=== PATIENT | male | born 1960 | race Caucasian/White ===

== ENCOUNTER 2016-08-24 10:11 | Observation (INO) | payer BC ==
[2016-08-24] MEDS ORDERED: NS 1,000 ML IV ONE ×2 (10:27→12:46)
[2016-08-24] MEDS ORDERED: fentaNYL 100 MCG/2 ML INJ IVP ONE (10:37)
[2016-08-24] MEDS ORDERED: ONDANSETRON 4 MG/2 ML VIAL IVP ONE (10:37)
--- NOTE | 2016-08-24 10:40 | EDPHY ---
H & P Stated Complaint: RUQ Pain w/ n/v this am x2. Source: Patient, Family Exam Limitations: No limitations - Personal History Tetanus Vaccine Date: 2011 - Medical/Surgical History Hx Asthma: No Hx Chronic Respiratory Disease: No Hx Diabetes: Yes Hx Cardiac Disease: No Hx Renal Disease: No Hx Cirrhosis: No Hx Alcoholism: No Hx HIV/AIDS: No Hx Splenectomy or Spleen Trauma: No Other PMH: l knee arthroscopes, back cysts removed, R partial oorchidectomy- blood clot, R inguinal hernia repair. - Social History Smoking Status: Never smoked HPI/ROS: CHIEF COMPLAINT: Right upper quadrant pain, vomiting HISTORY OF PRESENT ILLNESS: Patient complains of 5 day history of right upper quadrant abdominal pain. This is gradual onset. Constant duration. Symptoms are colicky and wax and wane from moderate to severe. Associated with nausea and several episodes of vomiting. This is bilious in appearance. No fever or chills. No chest pain or shortness of breath. No abdominal pain elsewhere. Has a history of cholelithiasis that was asymptomatic last year. No trauma or injury. No change in bowel movements. No other associated complaints or modifying factors. REVIEW OF SYSTEMS: Ten systems reviewed and are negative unless otherwise noted in the HPI PAST MEDICAL HISTORY: Type 2 diabetic, controlled with to oral medications. Previous oblique tear on a pain stimulator SOCIAL HISTORY: Nonsmoker FAMILY HISTORY: Noncontributory EXAMINATION General Appearance: Alert, no distress Head: normocephalic, atraumatic Eyes: Pupils equal and round, no conjunctival pallor or injection ENT, Mouth: Mucous membranes moist Neck: Normal inspection, supple, non-tender Respiratory: Lungs are clear to auscultation. No wheeze, rhonchi or crackles Cardiovascular: Regular rate and rhythm. No murmur. Pulses intact distally. Gastrointestinal: Obese Abdomen is soft. Bowel sounds present in all 4 quadrants. Tenderness right upper quadrant. No guarding. No tympany rigidity. No CVA tenderness. Nonacute abdomen. Back: non-tender, no bony abnormalities Neurological: A&O, nonfocal, normal gait Skin: Warm and dry, no rash Extremities: Nontender, no pedal edema Psychiatric: Mood and affect normal DIFFERENTIAL DIAGNOSES: Including but not limited to cholecystitis, cholelithiasis, choledocholithiasis , hepatitis, pancreatitis, colitis, renal colic MDM: 10:35 a.m. Right upper quadrant abdominal pain with nausea vomiting. Patient has a known history of cholelithiasis. Vital signs are stable. Abdominal exam is consistent with gallbladder etiology. Laboratory studies and ultrasound have been ordered. 11:11 a.m. CBC is unremarkable. Chemistry and ultrasound are pending at this time. I have re-evaluated the patient. His pain is improving. 12:30 p.m. Notified by radiologist Dr. Kennedy. Ultrasound of the gallbladder does reveal stones but no evidence of cholecystitis. Incidental note of likely hemangioma in the liver 12:45 p.m. I have re-evaluated the patient. He remains significantly uncomfortable. His abdomen remains benign but his pain is refractory to multiple bouts of IV pain medication. Thus I will order CT scan of the abdomen pelvis, further pain medication and Toradol. 3:25 p.m. There was delay in obtaining the CT scan as the patient has a mild allergy to IV contrast. This required pretreatment with Benadryl and Solu-Medrol with a brief period of observation pre and postprocedure. This was done without complication. No evidence of anaphylaxis reaction. At this time I have discussed the case with the radiologist Dr. Kennedy. CT scan reveals no acute findings other than stones in the gallbladder and hepatic hemangiomas. No other acute findings. Due to the significance of his pain and refractory to IV pain medications I will consult General surgery 3:35 p.m. I discussed the case with Dr. Roman. He is currently in the operating room but will consult on the patient after the current case. Patient still complains of moderate to severe pain. 5:00 p.m. I discussed the case with Dr. Roman directly here to emergency department. He will evaluate the patient at this time 5:[address] Roman has evaluated the patient. He is requesting admission to his service. He is also requesting normal saline at 100 mL/hour and 1 g of IV Invanz. He is planning for surgical intervention. Patient is admitted to his service in stable condition. SUPERVISION: Patient was evaluated in conjunction with the supervising physician. Please see their note for details. (Gordon Summers) Constitutional: Initial Vital Signs Temperature (C) 97.7 F 08/24/16 10:18 Heart Rate 67 08/24/16 10:18 Respiratory Rate 22 H 08/24/16 10:18 Blood Pressure 121/75 H 08/24/16 10:18 O2 Sat (%) 95 08/24/16 10:18 O2 Delivery Mode Nasal Cannula O2 (L/minute) 2 Allergies/Adverse Reactions: iodine Allergy (Verified 08/24/16 10:16) promethazine HCl [From Phenergan] Allergy (Verified 08/24/16 10:16) STRAWBERRIES Allergy (Severe, Uncoded 11/27/11 19:08) Anaphylaxis CONTRAST DYE Allergy (Mild, Uncoded 11/28/11 01:16) Home Medications: Medication Instructions Recorded Invokana 10/23/15 Medical Decision Making - Diagnostics Imaging Results: Imaging Impressions Abdomen Ultrasound 08/24/16 10:36 Impression: 1. Cholelithiasis. The patient was tender over the gallbladder fossa although there are no additional secondary findings for cholecystitis. 2. Atypical hemangioma suspected right lobe liver laterally. Additional presumed hemangiomas seen on prior CT study are not well delineated with ultrasound. 3. Mild hepatic steatosis suspected. Findings discussed with [facility] PAC at 12:38 hour, 08/24/2016. Abdomen CT 08/24/16 13:38 Impression: 1. Stable presumed hemangiomas within the liver. 2. No CT evidence of appendicitis, abscess or bowel obstruction. 3. Small gallstones in the gallbladder. 4. Mild splenomegaly stable in appearance. Findings discussed with [facility] PAC at 15:24 hour, 08/24/2016. ED Course/Re-evaluation: The patient was evaluated and managed by the physician's education assistant. My cosignature indicates that I reviewed the chart and I agree with the findings and plan of care as documented. I am the secondary supervising physician. ( Carmen Mario) - Data Points Laboratory Results: Laboratory Results 08/24/16 10:30 08/24/16 10:30 08/24/16 08/24/16 08/24/16 12:30 10:30 10:30 WBC RBC Hgb Hct MCV MCH MCHC RDW Plt Count MPV Neut % (Auto) Lymph % (Auto) Dade % (Auto) Eos % (Auto) Baso % (Auto) Nucleat RBC Rel Count Absolute Neuts (auto) Absolute Lymphs (auto) Absolute Monos (auto) Absolute Eos (auto) Absolute Basos (auto) Absolute Nucleated RBC Immature Gran % Immature Gran # PT 12.3 SEC SEC (12.0-15.0) INR 0.92 (0.83-1.16) APTT 24.6 SEC SEC (23.0-38.0) Sodium 136 mEq/L mEq/L (134-144) Potassium 4.1 mEq/L mEq/L (3.5-5.2) Chloride 105 mEq/L mEq/L (97-110) Carbon Dioxide 19 mEq/l L mEq/l (22-31) Anion Gap 12 mEq/L mEq/L (8-16) BUN 15 mg/dL mg/dL (7-23) Creatinine 0.7 mg/dL mg/dL (0.7-1.3) Estimated GFR > 60 Glucose 306 mg/dL H mg/dL (70-100) Calcium 9.2 mg/dL mg/dL (8.5-10.4) Total Bilirubin 1.0 mg/dL mg/dL (0.1-1.4) Conjugated Bilirubin 0.3 mg/dL mg/dL (0.0-0.5) Unconjugated Bilirubin 0.7 mg/dL mg/dL (0.0-1.1) AST 29 IU/L IU/L (17-59) ALT 42 IU/L IU/L (21-72) Alkaline Phosphatase 115 IU/L IU/L (38-126) Total Protein 7.0 g/dL g/dL (6.3-8.2) Albumin 4.2 g/dL g/dL (3.5-5.0) Lipase 267.0 IU/L IU/L (23-300) Urine Color YELLOW Urine Appearance CLEAR Urine pH 5.0 (5.0-7.5) Ur Specific [place] 1.032 H (1.002-1.030) Urine Protein NEGATIVE (NEGATIVE) Urine Ketones 1+ H (NEGATIVE) Urine Blood 1+ H (NEGATIVE) Urine Nitrate NEGATIVE (NEGATIVE) Urine Bilirubin NEGATIVE (NEGATIVE) Urine Urobilinogen NEGATIVE EU EU (0.2-1.0) Ur Leukocyte Esterase NEGATIVE (NEGATIVE) Urine RBC 1-3 /hpf /hpf (0-3) Urine WBC 1-3 /hpf /hpf (0-3) Ur Epithelial Cells NONE SEEN /lpf /lpf (NONE-1+) Urine Glucose 3+ H (NEGATIVE) 08/24/16 10:30 WBC 6.94 10^3/uL 10^3/uL (3.80-9.50) RBC 5.51 10^6/uL 10^6/uL (4.40-6.38) Hgb 14.9 g/dL g/dL (13.7-17.5) Hct 44.3 % % (40.0-51.0) MCV 80.4 fL L fL (81.5-99.8) MCH 27.0 pg L pg (27.9-34.1) MCHC 33.6 g/dL g/dL (32.4-36.7) RDW 13.9 % % (11.5-15.2) Plt Count 164 10^3/uL 10^3/uL (150-400) MPV 10.2 fL fL (8.7-11.7) Neut % (Auto) 76.3 % H % (39.3-74.2) Lymph % (Auto) 14.6 % L % (15.0-45.0) Dade % (Auto) 7.2 % % (4.5-13.0) Eos % (Auto) 1.0 % % (0.6-7.6) Baso % (Auto) 0.6 % % (0.3-1.7) Nucleat RBC Rel Count 0.0 % % (0.0-0.2) Absolute Neuts (auto) 5.30 10^3/uL 10^3/uL (1.70-6.50) Absolute Lymphs (auto) 1.01 10^3/uL 10^3/uL (1.00-3.00) Absolute Monos (auto) 0.50 10^3/uL 10^3/uL (0.30-0.80) Absolute Eos (auto) 0.07 10^3/uL 10^3/uL (0.03-0.40) Absolute Basos (auto) 0.04 10^3/uL 10^3/uL (0.02-0.10) Absolute Nucleated RBC 0.00 10^3/uL 10^3/uL (0-0.01) Immature Gran % 0.3 % % (0.0-1.1) Immature Gran # 0.02 10^3/uL 10^3/uL (0.00-0.10) PT INR APTT Sodium Potassium Chloride Carbon Dioxide Anion Gap BUN Creatinine Estimated GFR Glucose Calcium Total Bilirubin Conjugated Bilirubin Unconjugated Bilirubin AST ALT Alkaline Phosphatase Total Protein Albumin Lipase Urine Color Urine Appearance Urine pH Ur Specific [place] Urine Protein Urine Ketones Urine Blood Urine Nitrate Urine Bilirubin Urine Urobilinogen Ur Leukocyte Esterase Urine RBC Urine WBC Ur Epithelial Cells Urine Glucose Medications Given: Discontinued Medications Diphenhydramine HCl (Benadryl Injection) 50 mg IVP EDNOW ONE Stop: 08/24/16 13:49 Last Admin: 08/24/16 13:56 Dose: 50 mg Fentanyl (Sublimaze) 150 mcg IVP EDNOW ONE Stop: 08/24/16 10:38 Last Admin: 08/24/16 10:45 Dose: 150 mcg Hydromorphone HCl (Dilaudid) 1 mg IVP EDNOW ONE Stop: 08/24/16 11:33 Last Admin: 08/24/16 11:32 Dose: 1 mg Hydromorphone HCl (Dilaudid) 1 mg IVP EDNOW ONE Stop: 08/24/16 12:47 Last Admin: 08/24/16 13:05 Dose: 1 mg Hydromorphone HCl (Dilaudid) 1 mg IVP EDNOW ONE Stop: 08/24/16 15:03 Last Admin: 08/24/16 15:03 Dose: 1 mg Sodium Chloride (Ns) 1,000 mls @ 0 mls/hr IV EDNOW ONE; Wide Open PRN Reason: Protocol Stop: 08/24/16 10:28 Last Admin: 08/24/16 10:45 Dose: 1,000 mls Sodium Chloride (Ns) 1,000 mls @ 0 mls/hr IV ONCE ONE; Wide Open PRN Reason: Protocol Stop: 08/24/16 12:47 Last Admin: 08/24/16 13:06 Dose: 1,000 mls Ketorolac Tromethamine (Toradol) 30 mg IVP EDNOW ONE Stop: 08/24/16 12:47 Last Admin: 08/24/16 13:06 Dose: 30 mg Methylprednisolone Sodium Succinate (Solu-Medrol) 125 mg IVP EDNOW ONE Stop: 08/24/16 13:49 Last Admin: 08/24/16 13:56 Dose: 125 mg Ondansetron HCl (Zofran) 4 mg IVP EDNOW ONE Stop: 08/24/16 10:38 Last Admin: 08/24/16 10:46 Dose: 4 mg Departure - Departure Disposition: [facility] Inpatient Acute Clinical Impression: Biliary colic Diabetes mellitus Qualifiers: Diabetes mellitus type: type 2 Diabetes mellitus complication status: with hyperglycemia Diabetes mellitus half-way insulin use: without half-way use Qualified Code(s): E11.65 - Type 2 diabetes mellitus with hyperglycemia Condition: Good Referrals: Julia Freeman MD [Primary Care Provider] - As per Instructions
[2016-08-24 10:42] LABS: % IMMATURE GRANULYOCYTES 0.3 % (0.0-1.1); ABSOLUTE IMMATURE GRANULOCYTES 0.02 10^3/uL (0.00-0.10); ADD DIFF? NO; ADD MORPH? NO; ADD SCAN? NO; ATYPICAL LYMPHOCYTE FLAG 0 (0-99); FRAGMENT RBC FLAG 0 (0-99); HEMATOCRIT 44.3 % (40.0-51.0); HEMOGLOBIN 14.9 g/dL (13.7-17.5); LEFT SHIFT FLG 0 (0-99); LIPEMIA HEMOLYSIS FLAG 80 (0-99); MEAN CELL HEMOGLOBIN CONCENTR. 33.6 g/dL (32.4-36.7); MEAN CELL VOLUME 80.4 fL (81.5-99.8); MEAN PLATELET VOLUME 10.2 fL (8.7-11.7); PLATELET CLUMPS FLAG 0 (0-99); PLATELET COUNT 164 10^3/uL (150-400); RED BLOOD CELL COUNT 5.51 10^6/uL (4.40-6.38); RED CELL DISTRIBUTION WIDTH 13.9 % (11.5-15.2)
[2016-08-24 11:10] LABS: ALANINE AMINOTRANSFERASE 42 IU/L (21-72); ALBUMIN 4.2 g/dL (3.5-5.0); ALKALINE PHOSPHATASE 115 IU/L (38-126); ANION GAP 12 mEq/L (8-16); ASPARTATE AMINOTRANSFERASE 29 IU/L (17-59); BILIRUBIN-CONJUGATED 0.3 mg/dL (0.0-0.5); BILIRUBIN-UNCONJUGATED 0.7 mg/dL (0.0-1.1); CALCIUM 9.2 mg/dL (8.5-10.4); CARBON DIOXIDE 19 mEq/l (22-31); CHLORIDE 105 mEq/L (97-110); CREATININE 0.7 mg/dL (0.7-1.3); GLOMERULAR FILTRATION RATE > 60; GLUCOSE 306 mg/dL (70-100); POTASSIUM 4.1 mEq/L (3.5-5.2); SODIUM 136 mEq/L (134-144)
[2016-08-24 11:12] LABS: INR 0.92 (0.83-1.16); PROTIME(PATIENT) 12.3 SEC (12.0-15.0)
[2016-08-24 11:13] LABS: APTT 24.6 SEC (23.0-38.0)
[2016-08-24] MEDS ORDERED: HYDROmorphONE/DILAUDID 1 MG/ML SYR ONE ×2 (11:29→14:59)
[2016-08-24] MEDS ORDERED: HYDROmorphONE/DILAUDID 1 MG/ML SYR IVP ONE ×4 (11:32→17:41)
[2016-08-24 12:37] LABS: COLOR YELLOW; LEUKOCYTE ESTERASE,URINE NEGATIVE (NEGATIVE); NITRITE,URINE NEGATIVE (NEGATIVE)
[2016-08-24] MEDS ORDERED: KETOROLAC 30 MG/1 ML SDV IVP ONE (12:46)
[2016-08-24] MEDS ORDERED: IOPAMIDOL (ISOVUE-300) 100 ML BTL ONE (12:59)
[2016-08-24] MEDS ORDERED: methylPREDNISolone SOD SUCC 125 MG/2 ML VIAL IVP ONE (13:48)
[2016-08-24] MEDS ORDERED: ERTAPENEM 1 GM in NS 100 ML IV ONE (17:29)
[2016-08-24] MEDS ORDERED: NS 1,000 ML IV SCH (17:30)
[2016-08-24] MEDS ORDERED: PROPOFOL/EMULSION 500 MG/50 ML BOTTLE IV ONE (17:55)
[2016-08-24] MEDS ORDERED: ROCURONIUM 50 MG/5 ML VIAL ONE ×2 (17:57)
[2016-08-24] MEDS ORDERED: ONDANSETRON 4 MG/2 ML VIAL ONE (17:57)
[2016-08-24] MEDS ORDERED: LIDOCAINE 2% 5 ML SDV ONE (17:57)
[2016-08-24] MEDS ORDERED: DEXAMETHASONE 4 MG/ML VIAL ONE (17:57)
[2016-08-24] MEDS ORDERED: fentaNYL 100 MCG/2 ML INJ ONE ×2 (17:58→19:21)
[2016-08-24] MEDS ORDERED: LR 1,000 ML IV ONE (18:01)
[2016-08-24] MEDS ORDERED: MIDAZOLAM 2 MG/2 ML VIAL IVP ONE (18:11)
[2016-08-24] MEDS ORDERED: MIDAZOLAM 2 MG/2 ML VIAL ONE (18:13)
--- NOTE | 2016-08-24 18:13 | PDANEPAE ---
ANE Past Medical History - Cardiovascular History Hx Hypertension: No Hx Arrhythmias: No Hx Chest Pain: No Hx Coronary Artery / Peripheral Vascular Disease: No Hx CHF / Valvular Disease: No Hx Palpitations: No - Pulmonary History Hx COPD: No Hx Asthma/Reactive Airway Disease: No Hx Recent Upper Respiratory Infection: No Hx Oxygen in Use at Home: No Hx Sleep Apnea: No - Endocrine History Hx Diabetes: Yes Hypothyroid: No Hyperthyroid: No Obesity: mild ANE Review of Systems - Exercise capacity METS (RN): 6 METS ANE Patient History - Allergies Allergies/Adverse Reactions: iodine Allergy (Verified 08/24/16 10:16) promethazine HCl [From Phenergan] Allergy (Verified 08/24/16 10:16) STRAWBERRIES Allergy (Severe, Uncoded 11/27/11 19:08) Anaphylaxis CONTRAST DYE Allergy (Mild, Uncoded 11/28/11 01:16) - Home Medications Home Medications: Canagliflozin [Invokana] 300 mg PO DAILY 08/24/16 [Last Taken 08/23/16] Esomeprazole Mag Trihydrate [Nexium] 80 mg PO BID 08/24/16 [Last Taken 08/24/16] Pioglitazone HCl [Actos 15mg (*)] 15 mg PO DAILY 08/24/16 [Last Taken 08/23/16] - NPO status NPO Since - Liquids (Date): 08/24/16 NPO Since - Liquids (Time): 07:00 NPO Since - Solids (Date): 08/23/16 NPO Since - Solids (Time): 22:00 - Smoking Hx Smoking Status: Never smoked ANE Labs/Vital Signs - Labs Result Diagrams: 08/24/16 10:30 08/24/16 10:30 - Vital Signs Blood Pressure: 115/72 Heart Rate: 65 Respiratory Rate: 16 O2 Sat (%): 96 Height: 187.96 cm Weight: 115.666 kg ANE Physical Exam - Airway Neck exam: FROM Mallampati Score: Class 2 Mouth exam: normal dental/mouth exam - Pulmonary Pulmonary: no respiratory distress - Cardiovascular Cardiovascular: regular rate and rhythym - ASA Status ASA Status: II, E ANE Anesthesia Plan Anesthesia Plan: general endotracheal anesthesia
[2016-08-24] MEDS ORDERED: INSULIN REGULAR HUMAN 100 UNIT/ML ONE (18:15)
[2016-08-24] MEDS ORDERED: MEPERIDINE 25 MG/ML SYR ONE (18:16)
--- NOTE | 2016-08-24 19:27 | GHP ---
[f rep st] HISTORY AND PHYSICAL DATE OF ADMISSION: 08/24/2016 ADMITTING DIAGNOSIS: Acute and chronic cholecystitis with cholelithiasis. HISTORY OF PRESENT ILLNESS: The patient is a 56-year-old white male, who is having increasing symptoms over the past 2 months. Initially, it was a right upper quadrant twinge lasting about 10 seconds, occurring intermittently. Five weeks ago, it started becoming a weekly event. It was associated with vomiting bile and pain, which would last initially from 30-60 seconds but increased to longer and longer time frames. Last night was the first episode with persistent sustained pain. He would have 2- to 3-minute "jabs" of severe pain punctuating it. He had a hamburger at 6 p.m. last night, and today he has had diet tea and water only. He has had a recent upper respiratory tract infection. He has had intermittent diarrhea. He has not had any travel outside the [place] or antibiotics in the last 6 months. There is no family history of irritable bowel disease. He is a diabetic and has had chronic right flank pain. As part of that evaluation, he was found to have both kidney stones and gallstones. He had a spinal nerve stimulator implanted, which has helped the right abdominal wall symptoms. He also has problems with GERD on a daily basis if he does not take Nexium. He has early satiety as well. SOCIAL HISTORY: He is a nonsmoker. He drinks alcohol on a very rare basis. ALLERGIES: He gets phlebitis with IV Phenergan. He has an allergy to IV contrast and usually takes Benadryl prior to CAT scan dye. MEDICATIONS: He does take Nexium on a daily basis. He takes Invokana 300 mg every morning, and he takes pioglitazone 15 mg every morning. He also takes multivitamin. PAST SURGICAL HISTORY: Has included tonsillectomy, removal of a cyst from his neck, left wrist debridement of bone fragments after a fracture, right inguinal hernia repair, a partial orchidectomy. It was thought initially to be cancer but rather turned out to be a traumatic injury. He has had the spinal stimulator implanted mentioned above. He has had 5 left knee arthroscopies, 2 right knee arthroscopies. He has had a left foot release. He has had cysts removed from his back. There is no history of rheumatic fever, tuberculosis, hepatitis, transfusions. REVIEW OF SYSTEMS: He has had 5 concussions. In 1999, he had a TIA. For 6 hours , he had difficulty with word choice. He has a history of Pugh palsy. He has a history of pericarditis. He has 2 left lower dental caps. There are no limits on his activities. No history of steroid use. He has bilateral numbness of his feet from the balls of his feet to his toes on the plantar surfaces. PHYSICAL EXAMINATION: GENERAL: He is awake and alert but in distinct right upper quadrant pain. HEAD: His skull is normocephalic and atraumatic. LYMPHATIC : There is no cervical, supraclavicular, axillary, or inguinal lymphadenopathy. NECK: His thyroid is not enlarged. His neck is supple, nontender. BACK: Clear. LUNGS: Clear to auscultation. CARDIAC: Shows S1, S2 to be normal with normal split of S2, without murmurs, rubs, or gallops. NEUROLOGIC: There are no focal lateralizing findings. ABDOMEN: A generous abdomen with distinctly hypoactive bowel sounds. He is tender only in the right upper quadrant, and that is a severe tenderness with palpation (positive Davison sign). LOWER EXTREMITIES: Unremarkable. LABORATORIES: White count of 13,000 with 73 neutrophils, 14% lymphocytes. MCV is 40. Hematocrit is 43. MCV is 80.4. His glucose is 306. His lipase is 267. His AST is 29. His ALT is 42. His bilirubin is 1.0. Specific gravity is 1.032. His abdominal CT shows stable presumed hemangiomas within the liver. There is no CT evidence of abscess, bowel obstruction, or appendicitis. Gallstones are identified in the gallbladder. There is mild splenomegaly identified. On the ultrasound examination, he has cholelithiasis and sonographic positive Davison sign. IMPRESSION: Patient with acute right upper quadrant pain due to acute and chronic cholecystitis with cholelithiasis. PLAN: To take him to the operating room. I have told him that I will try to do this laparoscopically. There is a small chance it may have to be open. Talked about a cholangiogram. The patient understands the planned procedure and wishes to proceed as outlined. /[id number]/MODL MTDD
[2016-08-24] MEDS ORDERED: SUGAMMADEX SODIUM 200 MG/2 ML VIAL IVP ONE (19:37)
[2016-08-24] MEDS ORDERED: INSULIN REGULAR HUMAN 100 UNIT/ML SC ONE (20:07)
[2016-08-24] MEDS ORDERED: INSULIN REGULAR HUMAN 100 UNIT/ML IVP ONE (20:07)
[2016-08-24] MEDS ORDERED: LR 500 ML IV PRN (20:08)
[2016-08-24] MEDS ORDERED: ONDANSETRON 4 MG/2 ML VIAL IVP PRN ×2 (20:08→20:12)
[2016-08-24] MEDS ORDERED: MEPERIDINE 25 MG/ML SYR IVP PRN (20:08)
[2016-08-24] MEDS ORDERED: NALOXONE HCL 0.4 MG/ML INJ IVP PRN (20:08)
[2016-08-24] MEDS ORDERED: HYDROmorphONE/DILAUDID 1 MG/ML SYR IVP PRN (20:08)
[2016-08-24] MEDS ORDERED: fentaNYL 100 MCG/2 ML INJ IVP PRN (20:08)
--- NOTE | 2016-08-24 20:10 | POSTANESTH ---
Post Anesthetic Evaluation Cardiovascular Status: Normal, Stable Respiratory Status: Normal, Stable Level of Consciousness/Mental Status: Can Participate in Eval Pain Control: Adequate, Prn Tx Ordered Nausea/Vomiting Control: Adequate, Prn Tx Ordered Complications Possibly Related to Anesthesia: None Noted
--- NOTE | 2016-08-24 20:27 | POSTOPPROG ---
Post Op Note Date of Operation: 08/24/16 Surgeon: Abel Roman Anesthesia: GET(General Endotracheal) Pre-op Diagnosis: acute and chronic cholecystitis with cholelithiasis Post-op Diagnosis: acute and chronic cholecystitis with cholelithiasis Indication: acute and chronic cholecystitis with cholelithiasis Procedure: laparoscopic cholecystectomy Findings: acute and chronic cholecystitis with cholelithiasis Inf/Abcess present in the surg proc area at time of surgery?: No EBL: 100-500 Total fluids administered: 3500 since ER admission Complications: none Specimen(s): gallbladder
[2016-08-24] MEDS: HYDROmorphONE/DILAUDID 1 MG/ML SYR IVP PRN ×2 (21:02→23:25)
[2016-08-24] MEDS: ACETAMINOPHEN 500 MG TAB PO SCH (21:21)
[2016-08-24] MEDS: ENOXAPARIN 30 MG/0.3 ML SYR SC SCH (21:21)
[2016-08-24] MEDS: KETOROLAC 15 MG/1 ML SDV IVP SCH (23:16)
[2016-08-24] MEDS ORDERED: PANTOPRAZOLE SODIUM 40 MG in NS 100 ML IV ONE (23:45)
[2016-08-25 04:19] VITALS: RESP 16
[2016-08-25] MEDS: HYDROmorphONE/DILAUDID 1 MG/ML SYR IVP PRN (04:52)
[2016-08-25 04:53] LABS: % IMMATURE GRANULYOCYTES 0.5 % (0.0-1.1); ABSOLUTE IMMATURE GRANULOCYTES 0.05 10^3/uL (0.00-0.10); ADD DIFF? NO; ADD MORPH? NO; ADD SCAN? NO; ATYPICAL LYMPHOCYTE FLAG 0 (0-99); FRAGMENT RBC FLAG 0 (0-99); HEMATOCRIT 38.3 % (40.0-51.0); HEMOGLOBIN 12.2 g/dL (13.7-17.5); LEFT SHIFT FLG 0 (0-99); LIPEMIA HEMOLYSIS FLAG 80 (0-99); MEAN CELL HEMOGLOBIN 27.2 pg (27.9-34.1); MEAN CELL HEMOGLOBIN CONCENTR. 31.9 g/dL (32.4-36.7); MEAN CELL VOLUME 85.3 fL (81.5-99.8); MEAN PLATELET VOLUME 10.4 fL (8.7-11.7); PLATELET CLUMPS FLAG 0 (0-99); PLATELET COUNT 185 10^3/uL (150-400); RED BLOOD CELL COUNT 4.49 10^6/uL (4.40-6.38)
[2016-08-25 05:24] LABS: ALANINE AMINOTRANSFERASE 62 IU/L (21-72); ALBUMIN 3.1 g/dL (3.5-5.0); ALKALINE PHOSPHATASE 71 IU/L (38-126); ANION GAP 14 mEq/L (8-16); ASPARTATE AMINOTRANSFERASE 53 IU/L (17-59); BILIRUBIN,TOTAL 0.9 mg/dL (0.1-1.4); CALCIUM 8.3 mg/dL (8.5-10.4); CARBON DIOXIDE 18 mEq/l (22-31); CHLORIDE 109 mEq/L (97-110); CREATININE 0.8 mg/dL (0.7-1.3); GLOMERULAR FILTRATION RATE > 60; GLUCOSE 232 mg/dL (70-100); POTASSIUM 4.5 mEq/L (3.5-5.2); SODIUM 141 mEq/L (134-144); TOTAL PROTEIN 5.7 g/dL (6.3-8.2)
[2016-08-25] MEDS: KETOROLAC 15 MG/1 ML SDV IVP SCH (06:16)
[2016-08-25] MEDS: ACETAMINOPHEN 500 MG TAB PO SCH (06:17)
--- NOTE | 2016-08-25 07:13 | GOP ---
[f rep st] OPERATIVE REPORT DATE OF OPERATION: 08/24/2016 SURGEON: Abel Roman MD PREOPERATIVE DIAGNOSIS: Acute and chronic cholecystitis with cholelithiasis. POSTOPERATIVE DIAGNOSIS: Acute and chronic cholecystitis with cholelithiasis. PROCEDURE PERFORMED: Laparoscopic cholecystectomy. FINDINGS: Acute and chronic cholecystitis with cholelithiasis. INDICATIONS: Acute and chronic cholecystitis with cholelithiasis. DESCRIPTION OF PROCEDURE: The patient is placed on the operative table in the supine position. After induction of adequate general endotracheal anesthesia, the abdomen was carefully clipped, prepped, and draped. A surgical time-out was carried out and agreed to by all members of the operative team. A curvilinear incision was planned at the umbilicus. The skin was sharply incised, and dissection was continued with a combination of Bovie electrocautery and spreading technique to expose the rectus sheath on either side of the midline. The rectus sheath was incised. It was elevated between 2 Allis clamps. Pursestring of #0 PDS was placed. The peritoneum was entered. An 11-12 mm disposable Patricia trocar was positioned, and intraabdominal insufflation was carried out to 15 mmHg. A transverse upper epigastric incision was made for placement of a 5 mm port. This was based on the location of the liver edge. Two right upper quadrant oblique incisions were made for placement of 2 more 5 mm ports. The liver was easily visualized, but the gallbladder has densely adherent omentum. The omentum was carefully picked up, and its attachments to the gallbladder divided using a Harmonic scalpel. The gallbladder was finally dissected free with attachments. One grasper was left on the fundus and a second was placed in the infundibulum. Careful dissection in the region of Calot's triangle revealed the cystic artery. Further dissection identifies venous vessels and lymphatics. The cystic artery has a branch off the right hepatic that was identified. Three clips were placed on the patient's end of the cystic duct. One clip was placed in the gallbladder end. The lymphatics and venous vessels were identified, doubly clipped on the patient's side and singly clipped on the gallbladder side, and now both the cystic duct and the lymphatics were divided. This leaves the cystic artery. This was carefully clipped on the patient's side and on the gallbladder side it was divided. The purchase of the clip was incomplete. Bleeding does occur. I was able to re-clip the cystic branch. Approximately 300 cc of blood loss during the course of the case. The bulk of it occurred at this juncture. The gallbladder was now carefully dissected from its bed, initially with the Harmonic scalpel. Then, the L-hook was used at 30 joules. There was some bleeding from the bed which was controlled with higher settings of the Bovie. The gallbladder was finally removed. It was placed in an EndoCatch bag and delivered via the infraumbilical port site. Pneumoperitoneum was reestablished. Irrigation with heparin and Ancef containing irrigant has been done throughout the case. Irrigation was carried out. The biliary bed was inspected several times. Hemostasis was finally felt to be totally achieved. Blood products were then completely evacuated. The ports were removed under direct vision. The umbilical midline incision is elevated, and a simple suture of #0 PDS was placed [id number]. The pursestring was tied. A simple stitch was now tied. This resulted in excellent closure. The subcutaneous area is well irrigated. All skin incisions were closed with inverted simple sutures of #4-0 Vicryl. Mastisol and Steri-Strips were placed. Band-Aids were positioned. The patient was transferred to recovery in stable and satisfactory condition. FLUIDS ADMINISTERED: 3500 cc since ER admission. /[id number]/MODL MTDD
[2016-08-25 07:34] VITALS: BP 104/60; PULSE 89; TEMP 98.8; O2SAT 91
[2016-08-25] MEDS ORDERED: PIOGLITAZONE HCL 15 MG TAB PO SCH (09:00)
[2016-08-25] MEDS ORDERED: Canagliflozin [Invokana] 300 MG PO SCH (09:00)
[2016-08-25] MEDS: ENOXAPARIN 30 MG/0.3 ML SYR SC SCH (09:18)
[2016-08-25 09:29] LABS: HEMOGLOBIN A1C 12.9 % (4.0-6.0)
--- NOTE | 2016-08-25 10:25 | SOAPPROG ---
SOAP Progress Note Assessment/Plan: Assessment/Plan: 56 Y M s/p lap beronica, POD#1. Doing well. D.c to home. Does not want Rx narcotics. Rx ibuprofen provided. S: not much pain. feels so much better from before surgery. eating well. passing gas. no n/v. eager to go home. O: alert, nad no jaundice mmm chest clear rrr abd soft, +BS, in cdi 08/25/16 10:24 Objective: Vital Signs Temp Pulse Resp BP Pulse Ox 37.1 C 89 16 104/60 91 L 08/25/16 07:32 08/25/16 07:32 08/25/16 07:32 08/25/16 07:32 08/25/16 07:32 Laboratory Results 08/25/16 04:24 08/25/16 04:24 08/24/16 08/25/16 08/26/16 05:59 05:59 05:59 Intake Total 5050 Output Total 950 Balance 4100 PT 12.3 SEC (12.0-15.0) 08/24/16 10:30 INR 0.92 (0.83-1.16) 08/24/16 10:30 ICD10 Worksheet Patient Problems: Problems Problem Status Onset Abdominal pain Acute Biliary colic Acute Diabetes mellitus Acute
== END 2016-08-25 10:16 | disposition home or self-care (01) ==
LOC: INTOOBSV 17:30 → F3E 20:51
PROVIDERS: ADMIT Surgery; ATTEND Surgery
PROC: 3E0337Z Introduction of Electrolytic and Water Balance Substance into Peripheral Vein, Percutaneous Approach (ICD-10-PCS; 2016-08-24)
PROC: 0FT44ZZ Resection of Gallbladder, Percutaneous Endoscopic Approach (ICD-10-PCS; principal; 2016-08-24 18:00)
DX: K80.12 Calculus of gallbladder with acute and chronic cholecystitis without obstruction (principal); E11.65 Type 2 diabetes mellitus with hyperglycemia; E86.9 Volume depletion, unspecified; K76.9 Liver disease, unspecified; K21.9 Gastro-esophageal reflux disease without esophagitis; Z87.442 Personal history of urinary calculi; Z86.73 Personal history of transient ischemic attack (TIA), and cerebral infarction without residual deficits; Z79.84 Long term (current) use of oral hypoglycemic drugs
CPT/HCPCS: 47562; 74177; 76705; G0378; 96374; J1100; J1170; J1200; J1335; J1650; J1815; J1885; J2250; J2405; J2704; J3010; Q9967

== ENCOUNTER → 2016-08-28 | Outpatient (CLI) | payer BC ==
[~2016-08-28] MED LIST: IOPAMIDOL (ISOVUE-300) 100 ML BTL ONE; methylPREDNISolone SOD SUCC 125 MG/2 ML VIAL ONE
== END ==
LOC: FIMAGING 16:08
PROVIDERS: ATTEND Surgery
DX: K91.871 Postprocedural hematoma of a digestive system organ or structure following other procedure (principal); D18.09 Hemangioma of other sites; Z90.89 Acquired absence of other organs
CPT/HCPCS: J1200; Q9967

== ENCOUNTER → 2017-01-19 | Outpatient (CLI) | payer BC | LOC: FIMAGING 16:35 | PROVIDERS: ATTEND Emergency Medicine | DX: S92.515D Nondisplaced fracture of proximal phalanx of left lesser toe(s), subsequent encounter for fracture with routine healing (principal) ==

== ENCOUNTER 2017-03-12 11:13 | Emergency (ER) | payer BC ==
[2017-03-12] MEDS ORDERED: NS 1,000 ML IV ONE (11:34)
[2017-03-12] MEDS ORDERED: ONDANSETRON 4 MG/2 ML VIAL IVP ONE (11:34)
[2017-03-12] MEDS ORDERED: HYDROmorphONE/DILAUDID 1 MG/ML INJ IVP ONE ×2 (11:34→13:51)
[2017-03-12 11:35] VITALS: RESP 16; TEMP 98.4
--- NOTE | 2017-03-12 11:38 | EDPHY ---
H & P Time Seen by Provider: 03/12/17 11:27 HPI/ROS: CHIEF COMPLAINT: Right upper quadrant pain HISTORY OF PRESENT ILLNESS: The patient is a 57-year-old diabetic man with a history of chronic abdominal pain. He states that for the last couple of years he has had right flank pain from his pelvis up to his ribs. He has had his gallbladder removed and had a neurostimulator placed. He is care has been done at [facility]. He also sees a neckties painter. He states that his pain has been moderately controlled recently, however this morning he also developed some right upper quadrant pain that seems more medial than his typical pain. He has not vomited. He has not had a fever. He thought that maybe he was constipated but had a normal bowel movement last night and again this morning. He took some Ex-Lax because he ate a burrito for dinner last night which she was worried may have constipated him. No rashes. No history of kidney stones. No urinary symptoms. No groin or testicular pain. The pain does seem to come in waves. REVIEW OF SYSTEMS: Constitutional: denies: chills, fever, recent illness, recent injury EENTM: denies: blurred vision, double vision, nose congestion Respiratory: denies: cough, shortness of breath Cardiac: denies: chest pain, irregular heart rate, lightheadedness, palpitations Gastrointestinal/Abdominal: See HPI Genitourinary: denies: dysuria, frequency, hematuria, pain Musculoskeletal: denies: joint pain, muscle pain Skin: denies: lesions, rash, jaundice, bruising Neurological: denies: headache, numbness, paresthesia, tingling, dizziness, weakness Hematologic/Lymphatic: denies: blood clots, easy bleeding, easy bruising Immunologic/allergic: denies: HIV/AIDS, transplant EXAM: GENERAL: Well-appearing, overweight and in moderate distress. HEAD: Atraumatic, normocephalic. EYES: Pupils equal round and reactive to light, extraocular movements intact, sclera anicteric, conjunctiva are normal. ENT: TMs normal, nares patent, oropharynx clear without exudates. Moist mucous membranes. NECK: Normal range of motion, supple without lymphadenopathy or JVD. LUNGS: Breath sounds clear to auscultation bilaterally and equal. No wheezes rales or rhonchi. HEART: Regular rate and rhythm without murmurs, rubs or gallops. ABDOMEN: Mild right upper quadrant pain, no tenderness, no guarding or rebound , no distension BACK: No CVA tenderness, no spinal tenderness, step-offs or deformities EXTREMITIES: Normal range of motion, no pitting or edema. No clubbing or cyanosis. NEUROLOGICAL: Cranial nerves II through XII grossly intact. Normal speech, normal gait. 5/5 strength, normal movement in all extremities, normal sensation PSYCH: Normal mood, normal affect. SKIN: Warm, dry, normal turgor, no visible rashes or lesions. Source: Patient Exam Limitations: No limitations - Personal History Tetanus Vaccine Date: 2011 - Medical/Surgical History Hx Asthma: No Hx Chronic Respiratory Disease: No Hx Diabetes: Yes Hx Cardiac Disease: No Hx Renal Disease: No Hx Cirrhosis: No Hx Alcoholism: No Hx HIV/AIDS: No Hx Splenectomy or Spleen Trauma: No Other PMH: Chronic abdominal pain, cholecystectomy, spinal stimulator, diabetes , l knee arthroscopes, back cysts removed, R partial oorchidectomy-blood clot, R inguinal hernia repair. - Family History Significant Family History: No pertinent family hx - Social History Smoking Status: Never smoked Alcohol Use: Sober Drug Use: None Constitutional: Initial Vital Signs Temperature (C) 36.9 C 03/12/17 11:22 Heart Rate 92 03/12/17 11:22 Respiratory Rate 16 03/12/17 11:22 Blood Pressure 130/102 H 03/12/17 11:22 O2 Sat (%) 95 03/12/17 11:22 O2 Delivery Mode Room Air O2 (L/minute) 2 Allergies/Adverse Reactions: iodine Allergy (Verified 03/12/17 11:19) promethazine HCl [From Phenergan] Allergy (Verified 03/12/17 11:19) STRAWBERRIES Allergy (Severe, Uncoded 03/12/17 11:19) Anaphylaxis CONTRAST DYE Allergy (Mild, Uncoded 03/12/17 11:19) Home Medications: Medication Instructions Recorded Esomeprazole Mag Trihydrate 80 mg PO BID 08/24/16 [Nexium] Pioglitazone HCl [Actos 15mg (*)] 15 mg PO DAILY 08/24/16 Aspirin 81mg (*) 03/12/17 Empagliflozin [Jardiance] 03/12/17 Fish Oil 1,000 mg Capsule 2,000 mg 03/12/17 Humalog 03/12/17 Metformin HCl [Fortamet] 500 BID 03/12/17 Vitamin C 2,000 mg 03/12/17 Medical Decision Making - Diagnostics EKG Interpretation: An EKG obtained and was read and documented in trace view. Please see trace view for full reading and report. Sinus rhythm, no acute ischemic changes Imaging: Discussed imaging studies w/ scallop shucker Radiologist ED Course/Re-evaluation: 12:30 p.m. the patient is feeling somewhat better. His glucose is very high. He is not in DKA. He states they are in the process of changing his medications. I will treat him with insulin. 2:20 p.m. the patient's glucose has decreased. We discussed better glycemic control the possibilities of diabetic gastroparesis and neuropathies as possibly contributing to his pain. He is relieved by the CT scan and lab work done today. He and his will return and follow up with her doctors at [facility]. He has exploratory laparoscopy planned on the . We discussed indications for returning. Differential Diagnosis: Partial list of the Differential diagnosis considered include but were not limited to; chronic abdominal pain, hyperglycemia, gastroparesis, neuropathy, and although unlikely based on the history and physical exam, I also considered DKA, ischemia, obstruction, volvulus, rupture. I discussed these differential diagnoses and the plan with the patient as well as the usual and expected course. The patient understands that the diagnosis is provisional and that in medicine we are not always correct and that further workup is often warranted. Usual and customary warnings were given. All of the patient's questions were answered. The patient was instructed to return to the emergency department should the symptoms at all worsen or return, otherwise to followup with the physician as we discussed. - Data Points Laboratory Results: Laboratory Results 03/12/17 12:05 03/12/17 12:05 Medications Given: Discontinued Medications Diphenhydramine HCl (Benadryl Injection) 50 mg IVP EDNOW ONE Stop: 03/12/17 12:13 Last Admin: 03/12/17 12:20 Dose: 50 mg Hydromorphone HCl (Dilaudid) 1 mg IVP EDNOW ONE Stop: 03/12/17 11:35 Last Admin: 03/12/17 12:09 Dose: 1 mg Hydromorphone HCl (Dilaudid) 1 mg IVP EDNOW ONE Stop: 03/12/17 13:52 Last Admin: 03/12/17 14:05 Dose: 1 mg Sodium Chloride (Ns) 1,000 mls @ 0 mls/hr IV EDNOW ONE; Wide Open PRN Reason: Protocol Stop: 03/12/17 11:35 Last Admin: 03/12/17 12:05 Dose: 1,000 mls Insulin Human Regular (Humulin R) 10 unit IVP EDNOW ONE Stop: 03/12/17 12:33 Last Admin: 03/12/17 12:39 Dose: 10 units Methylprednisolone Sodium Succinate (Solu-Medrol) 125 mg IVP EDNOW ONE Stop: 03/12/17 12:13 Last Admin: 03/12/17 12:24 Dose: 125 mg Ondansetron HCl (Zofran) 4 mg IVP EDNOW ONE Stop: 03/12/17 11:35 Last Admin: 03/12/17 12:07 Dose: 4 mg Departure - Departure Disposition: Home, Routine, Self-Care Clinical Impression: Hyperglycemia Abdominal pain Qualifiers: Abdominal location: right upper quadrant Qualified Code(s): R10.11 - Right upper quadrant pain Condition: Fair Instructions: Diabetic Hyperglycemia (ED), Chronic Abdominal Pain (ED) Referrals: Julia Freeman MD [Primary Care Provider] - As per Instructions
--- NOTE | 2017-03-12 11:59 | CPEKG ---
Heart Rate: 84 RR Interval: 714 P-R Interval: 144 QRSD Interval: 82 QT Interval: 376 QTC Interval: 445 P [place]: 30 QRS [place]: 4 T [place]: 19 EKG Severity - OTHERWISE NORMAL ECG - EKG Impression: SINUS RHYTHM Electronically Signed By: Saravanan King 12-Mar-2017 12:00:48
[2017-03-12 12:11] LABS: PLATELET COUNT 177 10^3/uL (150-400)
[2017-03-12] MEDS ORDERED: methylPREDNISolone SOD SUCC 125 MG/2 ML VIAL IVP ONE (12:12)
[2017-03-12 12:21] LABS: INR 0.97 (0.83-1.16); PROTIME(PATIENT) 12.8 SEC (12.0-15.0)
[2017-03-12] MEDS ORDERED: INSULIN REGULAR HUMAN 100 UNIT/ML UNIT IVP ONE (12:32)
[2017-03-12] MEDS ORDERED: IOPAMIDOL (ISOVUE-300) 100 ML BTL ONE (13:13)
[2017-03-12 15:27] VITALS: BP 117/73; PULSE 75; O2SAT 94
== END 2017-03-12 15:15 | disposition home or self-care (01) ==
LOC: CED 11:13
PROC: 3E0337Z Introduction of Electrolytic and Water Balance Substance into Peripheral Vein, Percutaneous Approach (ICD-10-PCS; principal; 2017-03-12)
DX: R10.11 Right upper quadrant pain (principal); E11.65 Type 2 diabetes mellitus with hyperglycemia; E86.9 Volume depletion, unspecified; Z79.4 Long term (current) use of insulin; Z79.82 Long term (current) use of aspirin; Z90.49 Acquired absence of other specified parts of digestive tract
CPT/HCPCS: 74177-PO; 80048-PO; 80076-PO; 82947-QW; 83690-PO; 85025-PO; 85610-PO; 85730-PO; 96374; J1170; J1200; J1815; J2405; J2930; Q9967